=== PATIENT | male | born 1960 | race Caucasian/White ===

== ENCOUNTER 2017-12-05 16:30 | Emergency (ER) | payer MEDICARE, MEDICAID ==
[~2017-12-05] VITALS: Ht 165.1 cm; Wt 60.0 kg
[~2017-12-05 16:30] MED LIST: AMLO10TA4 PO; ARIP20TA2 PO; ATEN50TA PO; BENA40TA3 PO; CALC667C4 PO; CLON0.2T PO; DOCU-138 PO; GLIP10TA10 PO; HYDR100T26 PO; MINO10TA PO; NIFE90TA43 PO; OMEP20CA4 PO; PARO40TA75 PO; PHEN100C4 PO; PRAV80TA21 PO; REN800; VENL-179 PO
[2017-12-05 16:33] VITALS: BP 159/55
[2017-12-06] MEDS ORDERED: ACETAMINOPHEN 325MG TABLET PO ONE (01:45)
== END 2017-12-06 02:09 | disposition home or self-care (01) ==
LOC: ER 16:39
DX: S13.4XXA Sprain of ligaments of cervical spine, initial encounter (principal); S09.90XA Unspecified injury of head, initial encounter; F32.9 Major depressive disorder, single episode, unspecified; E11.9 Type 2 diabetes mellitus without complications; E78.00 Pure hypercholesterolemia, unspecified; I12.0 Hypertensive chronic kidney disease with stage 5 chronic kidney disease or end stage renal disease; Z79.84 Long term (current) use of oral hypoglycemic drugs; Z88.0 Allergy status to penicillin; Z88.1 Allergy status to other antibiotic agents; Z99.2 Dependence on renal dialysis; Z98.890 Other specified postprocedural states; V49.9XXA Car occupant (driver) (passenger) injured in unspecified traffic accident, initial encounter; Y93.89 Activity, other specified; Y99.8 Other external cause status; Y92.410 Unspecified street and highway as the place of occurrence of the external cause
CPT/HCPCS: 70450; 72100; 72125; 99284

== ENCOUNTER 2018-05-05 09:57 | Emergency (ER) | payer MEDICARE, MEDICAID ==
[~2018-05-05] VITALS: Ht 162.6 cm; Wt 64.0 kg
[2018-05-05] MEDS ORDERED: BACITRACIN ZINC OINT UDPKT TOP ONE (10:30)
[2018-05-05] MEDS ORDERED: HYDROCODONE/ACETAMINOPHEN 5/325MG TABLET PO ONE (10:30)
[2018-05-05 14:32] VITALS: BP 176/81
== END 2018-05-05 14:37 | disposition home or self-care (01) ==
LOC: ER 10:40
DX: S00.81XA Abrasion of other part of head, initial encounter (principal); M25.511 Pain in right shoulder; M54.2 Cervicalgia; Y93.89 Activity, other specified; Y92.092 Bedroom in other non-institutional residence as the place of occurrence of the external cause; W01.198A Fall on same level from slipping, tripping and stumbling with subsequent striking against other object, initial encounter
CPT/HCPCS: 70450; 71045; 72125; 99284

== ENCOUNTER 2018-05-22 12:41 | Inpatient (IN) | payer MEDICARE, MEDICAID ==
[~2018-05-22] VITALS: Ht 170.2 cm; Wt 70.3 kg
[2018-05-22] VITALS (28 sets, daily range): BP systolic 50–161; BP diastolic 24–110
[~2018-05-22 12:41] MED LIST changes: -BENA40TA3 PO; +BENA40TA9 PO
[2018-05-22] MEDS ORDERED: ONDANSETRON HCL 4MG/2ML VIAL IV STA (12:59)
[2018-05-22] MEDS ORDERED: SODIUM CHLORIDE 0.9% 1,000 ML IV ONE (12:59)
[2018-05-22] MEDS ORDERED: MORPHINE SULFATE 4 MG/ML CPJ (NOT FOR IM USE) IV STA (12:59)
[2018-05-22] MEDS ORDERED: LIDOCAINE HCL 1% 20ML VIAL (Pyxis) INJ ONE (14:03)
[2018-05-22] MEDS ORDERED: SODIUM BICARBONATE 4% (2.4MEQ) 5ML VIAL IV ONE (14:03)
[2018-05-22 14:25] LABS: HEMOGLOBIN. 11.1 g/dL (14.0-18.0); MEAN CORPUSCULAR HEMOGLOBIN 32.1 pg (28.0-32.0); MEAN CORPUSCULAR VOLUME 95.5 fL (80.0-94.0); MEAN PLATELET VOLUME 8.3 fl (7.4-10.4); PLATELET 328 x1000/uL (130-400); RED BLOOD CELL COUNT 3.45 mill/uL (4.7-6.1); RED CELL DISTRIBUTION WIDTH 14.4 % (11.6-14.6)
[2018-05-22 14:33] LABS: CHLORIDE 87 mEq/L (98-107)
[2018-05-22 14:38] LABS: INR 1.1; PROTHROMBIN TIME 11.2 sec (9.1-11.1)
[2018-05-22] MEDS ORDERED: NOREPINEPHRINE 4 MG in DEXT 5% WATER 246 ML IV ONE ×4 (14:45)
[2018-05-22 15:15] LABS: PLATELET ESTIMATE NORMAL
[2018-05-22] MEDS ORDERED: LEVOFLOXACIN 750MG PREMIX 150 ML IV ONE (16:15)
[2018-05-22] MEDS ORDERED: METRONIDAZOLE 500 MG PREMIX 100 ML IV ONE (16:15)
[2018-05-22] MEDS: BLOOD SUGAR DIAGNOSTIC STRIP TEST SCH (18:30)
[2018-05-22] MEDS ORDERED: DEXTROSE 50% WATER 50ML SYRINGE IV PRN (18:30)
[2018-05-22] MEDS ORDERED: SODIUM CHLORIDE 0.45% 1,000 ML IV SCH (18:45)
[2018-05-22] MEDS: PANTOPRAZOLE SODIUM 40 MG/VIAL IV SCH (18:48)
[2018-05-22] MEDS: INSULIN LISPRO 100 UNITS/ML SUBCUT SCH (18:49)
[2018-05-22] MEDS: MORPHINE SULFATE 4 MG/ML CPJ (NOT FOR IM USE) IV PRN (21:02)
[2018-05-22] MEDS: LEVETIRACETAM 500MG in SODIUM CHLORIDE 0.9% 100ML IV SCH (21:21)
[2018-05-22] MEDS: SODIUM CHLORIDE 0.45% 1,000 ML IV SCH (21:21)
[2018-05-22 21:43] LABS: BG CARBOXYHEMOGLOBIN 1.1 % (0.5-1.5); BG DEOXYHEMOGLOBIN 4.4 % (0.0-5.0); BG FRACTION INSPIRED OXYGEN 21; BG METHEMOGLOBIN 0.3 % (0.0-1.5); BG OXYGEN SATURATION 95.5 % (92.0-98.5); BG OXYHEMOGLOBIN 94.2 % (94.0-97.0); BG PCO2 31.3 mmHg (35.0-45.0); BG PH 7.484 (7.350-7.450); BG SAMPLE SITE RIGHT FEMORAL; BG TOTAL HEMOGLOBIN 9.8 g/dL (12.0-18.0); BG VENT MODE ROOM AIR
[2018-05-22] MEDS: NOREPINEPHRINE 4 MG in DEXT 5% WATER 246 ML IV PRN (21:47)
[2018-05-22] MEDS ORDERED: PHENYTOIN SODIUM 1000MG in SODIUM CHLORIDE 0.9% 100ML IV NR (22:00)
[2018-05-22] MEDS: MEROPENEM 500 MG in SODIUM CHLORIDE 0.9% 50 ML IV SCH (22:42)
[2018-05-22] MEDS ORDERED: VIT D2 (23:33)
[2018-05-22] MEDS ORDERED: PRAV40TA58 MT (23:33)
[2018-05-22] MEDS ORDERED: BENA20TA10 MT (23:33)
[2018-05-22] MEDS ORDERED: ARIP15TA7 MT (23:33)
[2018-05-23] VITALS (98 sets, daily range): BP systolic 44–166; BP diastolic 14–110
[2018-05-23] MEDS: BLOOD SUGAR DIAGNOSTIC STRIP TEST SCH ×5 (00:13→23:42)
[2018-05-23] MEDS: INSULIN LISPRO 100 UNITS/ML SUBCUT SCH ×4 (00:38→16:36)
[2018-05-23 01:05] LABS: HEMATOCRIT 29.7 % (42.0-52.0)
[2018-05-23] MEDS ORDERED: ALBUMIN HUMAN 25GM/500ML (5%) IV SCH (02:00)
[2018-05-23] MEDS: MORPHINE SULFATE 4 MG/ML CPJ (NOT FOR IM USE) IV PRN ×2 (03:39→17:34)
[2018-05-23] MEDS: SODIUM CHLORIDE 0.45% 1,000 ML IV SCH ×2 (05:36→16:38)
[2018-05-23 05:44] LABS: MEAN CORPUSCULAR HEMOGLOBIN 32.6 pg (28.0-32.0); MEAN CORPUSCULAR VOLUME 94.6 fL (80.0-94.0); MEAN PLATELET VOLUME 7.8 fl (7.4-10.4); PLATELET 241 x1000/uL (130-400); RED BLOOD CELL COUNT 2.75 mill/uL (4.7-6.1); RED CELL DISTRIBUTION WIDTH 14.4 % (11.6-14.6)
[2018-05-23 06:02] LABS: CHLORIDE 90 mEq/L (98-107)
[2018-05-23 06:17] LABS: PHOSPHORUS 5.3 mg/dL (2.5-4.9)
[2018-05-23 07:21] LABS: BG BASE EXCESS -1.1 mmol/L (-2.0-2.0); BG CARBOXYHEMOGLOBIN 1.1 % (0.5-1.5); BG DEOXYHEMOGLOBIN 5.2 % (0.0-5.0); BG HCO3 ACT 21.8 mmol/L (22.0-26.0); BG METHEMOGLOBIN 0.2 % (0.0-1.5); BG OXYGEN SATURATION 94.7 % (92.0-98.5); BG OXYHEMOGLOBIN 93.5 % (94.0-97.0); BG PO2 79.5 mmHg (75.0-100.0); BG SAMPLE SITE RIGHT BRACHIAL; BG TOTAL HEMOGLOBIN 9.7 g/dL (12.0-18.0); BG VENT MODE ROOM AIR
[2018-05-23] MEDS: SODIUM CHLORIDE 0.9% IV SCH ×2 (08:00→20:35)
[2018-05-23] MEDS: PHENYTOIN SODIUM IV SCH ×2 (08:00→20:35)
[2018-05-23] MEDS: NOREPINEPHRINE 4 MG in DEXT 5% WATER 246 ML IV PRN ×4 (09:32→17:22)
[2018-05-23] MEDS: PANTOPRAZOLE SODIUM 40 MG/VIAL IV SCH (09:45)
[2018-05-23] MEDS ORDERED: METRONIDAZOLE 500 MG PREMIX 100 ML IV ONE (09:54)
[2018-05-23] MEDS ORDERED: LEVOFLOXACIN 500MG PREMIX 100 ML IV ONE (09:55)
[2018-05-23] MEDS ORDERED: BUPIVACAINE HCL 0.5% (5MG/ML) 50ML ONE (09:55)
[2018-05-23] MEDS ORDERED: FENTANYL CITRATE/PF 50MCG/ML 5ML VIAL ONE (10:23)
[2018-05-23] MEDS ORDERED: ROCURONIUM BROMIDE 10MG/ML VIAL 5ML IV ONE ×2 (10:35→11:10)
[2018-05-23] MEDS ORDERED: BUPIVACAINE HCL 0.5% 290 ML in ON-Q PM025 DRUG DELIV DEVICE 1 EA IR SCH (11:45)
[2018-05-23 13:20] LABS: PLATELET ESTIMATE NORMAL
[2018-05-23] MEDS: LEVETIRACETAM 500MG in SODIUM CHLORIDE 0.9% 100ML IV SCH ×2 (13:40→22:16)
[2018-05-23 13:46] LABS: BG BASE EXCESS -6.6 mmol/L (-2.0-2.0); BG CARBOXYHEMOGLOBIN 0.6 % (0.5-1.5); BG DEOXYHEMOGLOBIN 0.7 % (0.0-5.0); BG FRACTION INSPIRED OXYGEN 70; BG HCO3 ACT 17.4 mmol/L (22.0-26.0); BG METHEMOGLOBIN 0.3 % (0.0-1.5); BG OXYGEN SATURATION 99.3 % (92.0-98.5); BG OXYHEMOGLOBIN 98.4 % (94.0-97.0); BG PCO2 29.4 mmHg (35.0-45.0); BG PO2 416.3 mmHg (75.0-100.0); BG SAMPLE SITE A-LINE; BG TIDAL VOLUME(mL) 450 mL; BG TOTAL HEMOGLOBIN 9.1 g/dL (12.0-18.0); BG VENT MODE VENT - A/C; BG VENT RATE 14 set
[2018-05-23] MEDS ORDERED: SODIUM BICARBONATE 8.4% 1 MEQ/ML 50ML SYR IV NR ×2 (14:08)
[2018-05-23] MEDS ORDERED: SODIUM BICARBONATE 8.4% 1 MEQ/ML 50ML SYR IV ONE (14:16)
[2018-05-23] MEDS ORDERED: ALBUMIN HUMAN 25GM/500ML (5%) IV NR (14:30)
[2018-05-23 15:30] LABS: HEMATOCRIT. 26.5 % (42.0-52.0); MEAN CORPUSCULAR HEMOGLOBIN 32.7 pg (28.0-32.0); MEAN CORPUSCULAR VOLUME 95.8 fL (80.0-94.0); MEAN PLATELET VOLUME 8.7 fl (7.4-10.4); PLATELET 300 x1000/uL (130-400); RED BLOOD CELL COUNT 2.77 mill/uL (4.7-6.1); RED CELL DISTRIBUTION WIDTH 14.9 % (11.6-14.6)
[2018-05-23 16:14] LABS: PLATELET ESTIMATE NORMAL
[2018-05-23 20:46] LABS: BG BASE EXCESS -0.3 mmol/L (-2.0-2.0); BG CARBOXYHEMOGLOBIN 0.7 % (0.5-1.5); BG DEOXYHEMOGLOBIN 1.3 % (0.0-5.0); BG FRACTION INSPIRED OXYGEN 40; BG HCO3 ACT 21.4 mmol/L (22.0-26.0); BG METHEMOGLOBIN 0.3 % (0.0-1.5); BG OXYGEN SATURATION 98.7 % (92.0-98.5); BG OXYHEMOGLOBIN 97.7 % (94.0-97.0); BG PCO2 25.9 mmHg (35.0-45.0); BG PEEP (cmH2O) 0 cmH2O; BG PH 7.534 (7.350-7.450); BG PO2 210.5 mmHg (75.0-100.0); BG SAMPLE SITE A-LINE; BG TIDAL VOLUME(mL) 450 mL; BG VENT MODE VENT - A/C; BG VENT RATE 14 set
[2018-05-23 20:48] LABS: MEAN CORPUSCULAR HEMOGLOBIN 33.1 pg (28.0-32.0); MEAN CORPUSCULAR VOLUME 94.5 fL (80.0-94.0); MEAN PLATELET VOLUME 8.2 fl (7.4-10.4); PLATELET 199 x1000/uL (130-400); RED BLOOD CELL COUNT 2.01 mill/uL (4.7-6.1); RED CELL DISTRIBUTION WIDTH 14.7 % (11.6-14.6)
[2018-05-23 20:55] LABS: HEMOGLOBIN. 6.7 g/dL (14.0-18.0)
[2018-05-23 21:33] LABS: PLATELET ESTIMATE NORMAL
[2018-05-23 22:53] LABS: BG BASE EXCESS -3.5 mmol/L (-2.0-2.0); BG CARBOXYHEMOGLOBIN 1.8 % (0.5-1.5); BG DEOXYHEMOGLOBIN 1.7 % (0.0-5.0); BG FRACTION INSPIRED OXYGEN 30; BG HCO3 ACT 19.6 mmol/L (22.0-26.0); BG METHEMOGLOBIN 0.3 % (0.0-1.5); BG OXYGEN SATURATION 98.3 % (92.0-98.5); BG OXYHEMOGLOBIN 96.2 % (94.0-97.0); BG PCO2 27.6 mmHg (35.0-45.0); BG PO2 129.5 mmHg (75.0-100.0); BG SAMPLE SITE A-LINE; BG TIDAL VOLUME(mL) 450 mL; BG TOTAL HEMOGLOBIN 7.2 g/dL (12.0-18.0); BG VENT MODE VENT - A/C; BG VENT RATE 14 set
[2018-05-24] VITALS (112 sets, daily range): BP systolic 58–189; BP diastolic 15–106
[2018-05-24] MEDS: MORPHINE SULFATE 4 MG/ML CPJ (NOT FOR IM USE) IV PRN ×4 (00:02→07:53)
[2018-05-24] MEDS: MEROPENEM 500 MG in SODIUM CHLORIDE 0.9% 50 ML IV SCH ×2 (00:02→23:34)
[2018-05-24] MEDS: INSULIN LISPRO 100 UNITS/ML SUBCUT SCH ×5 (00:11→23:35)
[2018-05-24] MEDS: NOREPINEPHRINE 4 MG in DEXT 5% WATER 246 ML IV PRN ×2 (00:17→05:09)
[2018-05-24] MEDS: SODIUM CHLORIDE 0.45% 1,000 ML IV SCH ×3 (02:10→21:42)
[2018-05-24 04:07] LABS: HEMATOCRIT. 23.6 % (42.0-52.0); HEMOGLOBIN. 8.1 g/dL (14.0-18.0); MEAN CORPUSCULAR VOLUME 92.8 fL (80.0-94.0); MEAN PLATELET VOLUME 8.4 fl (7.4-10.4); PLATELET 211 x1000/uL (130-400); RED BLOOD CELL COUNT 2.54 mill/uL (4.7-6.1)
[2018-05-24 04:08] LABS: PHOSPHORUS 5.9 mg/dL (2.5-4.9)
[2018-05-24 05:00] LABS: PLATELET ESTIMATE NORMAL
[2018-05-24] MEDS ORDERED: NOREPINEPHRINE 16 MG in DEXT 5% WATER 234 ML IV PRN (06:15)
[2018-05-24] MEDS: BLOOD SUGAR DIAGNOSTIC STRIP TEST SCH ×4 (06:23→23:24)
[2018-05-24] MEDS ORDERED: LORAZEPAM 2MG/ML CPJ IV PRN (08:45)
[2018-05-24 08:49] LABS: BG BASE EXCESS -2.1 mmol/L (-2.0-2.0); BG CARBOXYHEMOGLOBIN 0.6 % (0.5-1.5); BG DEOXYHEMOGLOBIN 1.6 % (0.0-5.0); BG FRACTION INSPIRED OXYGEN 30; BG HCO3 ACT 20.5 mmol/L (22.0-26.0); BG METHEMOGLOBIN 0.2 % (0.0-1.5); BG OXYGEN SATURATION 98.4 % (92.0-98.5); BG OXYHEMOGLOBIN 97.6 % (94.0-97.0); BG PCO2 26.3 mmHg (35.0-45.0); BG PH 7.509 (7.350-7.450); BG PO2 144.8 mmHg (75.0-100.0); BG SAMPLE SITE A-LINE; BG TIDAL VOLUME(mL) 450 mL; BG TOTAL HEMOGLOBIN 7.6 g/dL (12.0-18.0); BG VENT MODE VENT - A/C; BG VENT RATE 14 set
[2018-05-24] MEDS: IPRATROPIUM/ALBUTEROL 0.5-3(2.5)MG/3ML NEB HHN SCH ×5 (08:51→23:55)
[2018-05-24] MEDS: LEVETIRACETAM 500MG in SODIUM CHLORIDE 0.9% 100ML IV SCH ×2 (12:11→21:42)
[2018-05-24] MEDS: SODIUM CHLORIDE 0.9% IV SCH ×2 (12:11→20:48)
[2018-05-24] MEDS: PHENYTOIN SODIUM IV SCH ×2 (12:11→20:48)
[2018-05-24] MEDS: PANTOPRAZOLE SODIUM 40 MG/VIAL IV SCH (12:11)
[2018-05-24 14:22] LABS: BG BASE EXCESS -0.1 mmol/L (-2.0-2.0); BG CARBOXYHEMOGLOBIN 0.7 % (0.5-1.5); BG DEOXYHEMOGLOBIN 2.3 % (0.0-5.0); BG FRACTION INSPIRED OXYGEN 30; BG HCO3 ACT 24.1 mmol/L (22.0-26.0); BG METHEMOGLOBIN 0.3 % (0.0-1.5); BG OXYGEN SATURATION 97.7 % (92.0-98.5); BG OXYHEMOGLOBIN 96.7 % (94.0-97.0); BG PCO2 37.2 mmHg (35.0-45.0); BG PO2 123.5 mmHg (75.0-100.0); BG PRESSURE SUPPORT 0; BG SAMPLE SITE A-LINE; BG TOTAL HEMOGLOBIN 8.7 g/dL (12.0-18.0); BG VENT MODE VENT - CPAP
[2018-05-24 17:19] LABS: BG CARBOXYHEMOGLOBIN 0.5 % (0.5-1.5); BG DEOXYHEMOGLOBIN 1.5 % (0.0-5.0); BG FRACTION INSPIRED OXYGEN 30; BG METHEMOGLOBIN 0.3 % (0.0-1.5); BG OXYGEN SATURATION 98.5 % (92.0-98.5); BG OXYHEMOGLOBIN 97.7 % (94.0-97.0); BG PCO2 36.1 mmHg (35.0-45.0); BG PH 7.441 (7.350-7.450); BG PO2 148.5 mmHg (75.0-100.0); BG SAMPLE SITE A-LINE; BG TOTAL HEMOGLOBIN 8.5 g/dL (12.0-18.0); BG VENT MODE MASK - AEROSOL
[2018-05-25] VITALS (111 sets, daily range): BP systolic 37–161; BP diastolic 13–139
[2018-05-25] MEDS: IPRATROPIUM/ALBUTEROL 0.5-3(2.5)MG/3ML NEB HHN SCH ×5 (04:13→20:25)
[2018-05-25 04:39] LABS: HEMATOCRIT. 21.4 % (42.0-52.0); HEMOGLOBIN. 7.4 g/dL (14.0-18.0); MEAN CORPUSCULAR VOLUME 92.3 fL (80.0-94.0); MEAN PLATELET VOLUME 7.9 fl (7.4-10.4); PLATELET 191 x1000/uL (130-400); RED BLOOD CELL COUNT 2.32 mill/uL (4.7-6.1); RED CELL DISTRIBUTION WIDTH 15.6 % (11.6-14.6)
[2018-05-25 05:24] LABS: PHOSPHORUS 5.5 mg/dL (2.5-4.9)
[2018-05-25] MEDS: BLOOD SUGAR DIAGNOSTIC STRIP TEST SCH ×3 (06:32→18:00)
[2018-05-25] MEDS: INSULIN LISPRO 100 UNITS/ML SUBCUT SCH ×3 (06:33→18:23)
[2018-05-25] MEDS: SODIUM CHLORIDE 0.9% IV SCH ×2 (08:16→20:49)
[2018-05-25] MEDS: PHENYTOIN SODIUM IV SCH ×2 (08:16→20:49)
[2018-05-25] MEDS: SODIUM CHLORIDE 0.45% 1,000 ML IV SCH (08:31)
[2018-05-25 08:48] LABS: BG BASE EXCESS -0.3 mmol/L (-2.0-2.0); BG CARBOXYHEMOGLOBIN 1.1 % (0.5-1.5); BG DEOXYHEMOGLOBIN 1.5 % (0.0-5.0); BG FRACTION INSPIRED OXYGEN 22; BG HCO3 ACT 24.5 mmol/L (22.0-26.0); BG METHEMOGLOBIN 0.2 % (0.0-1.5); BG OXYGEN SATURATION 98.5 % (92.0-98.5); BG OXYHEMOGLOBIN 97.2 % (94.0-97.0); BG PCO2 41.2 mmHg (35.0-45.0); BG PH 7.393 (7.350-7.450); BG SAMPLE SITE A-LINE; BG TOTAL HEMOGLOBIN 7.7 g/dL (12.0-18.0); BG VENT MODE NASAL CANNULA
[2018-05-25 09:59] LABS: PLATELET ESTIMATE NORMAL
[2018-05-25] MEDS: PANTOPRAZOLE SODIUM 40 MG/VIAL IV SCH (10:01)
[2018-05-25] MEDS: LEVETIRACETAM 500MG in SODIUM CHLORIDE 0.9% 100ML IV SCH ×2 (10:01→22:30)
[2018-05-25] MEDS: CEFTAZIDIME PENTAHYDRATE 1 G in DEXTROSE 5% WATER 50 ML IV SCH (16:35)
[2018-05-25] MEDS: METRONIDAZOLE 500 MG PREMIX 100 ML IV SCH (16:35)
[2018-05-25 20:07] LABS: HEMATOCRIT 27.5 % (42.0-52.0); HEMOGLOBIN 9.3 g/dL (14.0-18.0)
[2018-05-26] VITALS (87 sets, daily range): BP systolic 39–167; BP diastolic 15–98
[2018-05-26] MEDS: IPRATROPIUM/ALBUTEROL 0.5-3(2.5)MG/3ML NEB HHN SCH ×6 (00:09→20:07)
[2018-05-26] MEDS: INSULIN LISPRO 100 UNITS/ML SUBCUT SCH ×4 (00:11→18:53)
[2018-05-26] MEDS: BLOOD SUGAR DIAGNOSTIC STRIP TEST SCH ×4 (00:11→18:48)
[2018-05-26] MEDS: METRONIDAZOLE 500 MG PREMIX 100 ML IV SCH ×3 (00:12→21:15)
[2018-05-26 05:29] LABS: BASOPHILS % 0.7 % (0.0-2.0); EOSINOPHILS % 0.5 % (0.0-5.0); HEMATOCRIT. 26.5 % (42.0-52.0); HEMOGLOBIN. 8.9 g/dL (14.0-18.0); LYMPHOCYTES % 8.4 % (20.0-50.0); MEAN CORPUSCULAR HEMOGLOBIN 30.3 pg (28.0-32.0); MEAN CORPUSCULAR VOLUME 90.1 fL (80.0-94.0); MEAN PLATELET VOLUME 7.7 fl (7.4-10.4); MONOCYTES % 14.3 % (2.0-8.0); NEUTROPHILS % 76.1 % (40.0-76.0); PLATELET 178 x1000/uL (130-400); RED BLOOD CELL COUNT 2.94 mill/uL (4.7-6.1); RED CELL DISTRIBUTION WIDTH 17.3 % (11.6-14.6)
[2018-05-26] MEDS: SODIUM CHLORIDE 0.45% 1,000 ML IV SCH (06:13)
[2018-05-26] MEDS: PANTOPRAZOLE SODIUM 40 MG/VIAL IV SCH (11:18)
[2018-05-26] MEDS: LEVETIRACETAM 500MG in SODIUM CHLORIDE 0.9% 100ML IV SCH ×2 (11:18→20:44)
[2018-05-26] MEDS: PHENYTOIN SODIUM IV SCH ×2 (11:19→20:44)
[2018-05-26] MEDS: SODIUM CHLORIDE 0.9% IV SCH ×2 (11:19→20:44)
[2018-05-26] MEDS: CEFTAZIDIME PENTAHYDRATE 1 G in DEXTROSE 5% WATER 50 ML IV SCH (16:26)
[2018-05-27] VITALS (20 sets, daily range): BP systolic 75–152; BP diastolic 28–81
[2018-05-27] MEDS: IPRATROPIUM/ALBUTEROL 0.5-3(2.5)MG/3ML NEB HHN SCH ×6 (00:35→20:37)
[2018-05-27] MEDS: BLOOD SUGAR DIAGNOSTIC STRIP TEST SCH ×4 (00:56→17:09)
[2018-05-27] MEDS: SODIUM CHLORIDE 0.45% 1,000 ML IV SCH ×2 (01:09→17:15)
[2018-05-27] MEDS: INSULIN LISPRO 100 UNITS/ML SUBCUT SCH ×4 (05:34→17:15)
[2018-05-27 05:48] LABS: BASOPHILS % 0.7 % (0.0-2.0); EOSINOPHILS % 0.9 % (0.0-5.0); HEMOGLOBIN. 8.1 g/dL (14.0-18.0); MEAN CORPUSCULAR HEMOGLOBIN 30.4 pg (28.0-32.0); MEAN CORPUSCULAR VOLUME 93.3 fL (80.0-94.0); MEAN PLATELET VOLUME 7.8 fl (7.4-10.4); MONOCYTES % 13.3 % (2.0-8.0); NEUTROPHILS % 77.1 % (40.0-76.0); PLATELET 138 x1000/uL (130-400); RED BLOOD CELL COUNT 2.68 mill/uL (4.7-6.1)
[2018-05-27 06:02] LABS: PHOSPHORUS 4.7 mg/dL (2.5-4.9)
[2018-05-27] MEDS: METRONIDAZOLE 500 MG PREMIX 100 ML IV SCH ×2 (08:13→23:03)
[2018-05-27] MEDS: PANTOPRAZOLE SODIUM 40 MG/VIAL IV SCH (08:13)
[2018-05-27] MEDS: PHENYTOIN SODIUM IV SCH ×2 (08:49→20:43)
[2018-05-27] MEDS: SODIUM CHLORIDE 0.9% IV SCH ×2 (08:49→20:43)
[2018-05-27] MEDS: LEVETIRACETAM 500MG in SODIUM CHLORIDE 0.9% 100ML IV SCH ×2 (11:00→21:59)
[2018-05-27] MEDS: MORPHINE SULFATE 4 MG/ML CPJ (NOT FOR IM USE) IV PRN (15:11)
[2018-05-27] MEDS: CEFTAZIDIME PENTAHYDRATE 1 G in DEXTROSE 5% WATER 50 ML IV SCH (15:29)
[2018-05-28] VITALS (12 sets, daily range): BP systolic 97–168; BP diastolic 27–118
[2018-05-28] MEDS: IPRATROPIUM/ALBUTEROL 0.5-3(2.5)MG/3ML NEB HHN SCH ×6 (00:33→20:50)
[2018-05-28] MEDS: BLOOD SUGAR DIAGNOSTIC STRIP TEST SCH ×5 (00:41→23:23)
[2018-05-28] MEDS: EPOETIN ALFA 4000UNITS/ML VIAL SUBCUT SCH (01:02)
[2018-05-28] MEDS: INSULIN LISPRO 100 UNITS/ML SUBCUT SCH ×5 (06:00→23:26)
[2018-05-28 07:42] LABS: HEMATOCRIT. 24.1 % (42.0-52.0); HEMOGLOBIN. 8.2 g/dL (14.0-18.0); MEAN CORPUSCULAR HEMOGLOBIN 30.9 pg (28.0-32.0); MEAN CORPUSCULAR VOLUME 91.2 fL (80.0-94.0); MEAN PLATELET VOLUME 7.6 fl (7.4-10.4); PLATELET 134 x1000/uL (130-400); RED BLOOD CELL COUNT 2.64 mill/uL (4.7-6.1); RED CELL DISTRIBUTION WIDTH 17.1 % (11.6-14.6)
[2018-05-28] MEDS: PHENYTOIN SODIUM IV SCH ×2 (08:53→20:58)
[2018-05-28] MEDS: SODIUM CHLORIDE 0.9% IV SCH ×2 (08:53→20:58)
[2018-05-28] MEDS: PANTOPRAZOLE SODIUM 40 MG/VIAL IV SCH (08:54)
[2018-05-28] MEDS: METRONIDAZOLE 500 MG PREMIX 100 ML IV SCH ×2 (08:54→20:58)
[2018-05-28] MEDS: LEVETIRACETAM 500MG in SODIUM CHLORIDE 0.9% 100ML IV SCH ×2 (08:54→20:59)
[2018-05-28] MEDS: SODIUM CHLORIDE 0.45% 1,000 ML IV SCH (11:40)
[2018-05-28 16:22] LABS: PLATELET ESTIMATE NORMAL
[2018-05-28] MEDS: CEFTAZIDIME PENTAHYDRATE 1 G in DEXTROSE 5% WATER 50 ML IV SCH (17:59)
[2018-05-28] MEDS ORDERED: TOTAL PARENTERAL NUTRITION 1,300 ML IV SCH (21:00)
[2018-05-29] VITALS (12 sets, daily range): BP systolic 86–169; BP diastolic 15–97
[2018-05-29] MEDS: IPRATROPIUM/ALBUTEROL 0.5-3(2.5)MG/3ML NEB HHN SCH ×6 (00:23→20:13)
[2018-05-29] MEDS: SODIUM CHLORIDE 0.45% 1,000 ML IV SCH (06:09)
[2018-05-29] MEDS: BLOOD SUGAR DIAGNOSTIC STRIP TEST SCH ×3 (06:09→18:31)
[2018-05-29] MEDS: INSULIN LISPRO 100 UNITS/ML SUBCUT SCH ×3 (06:12→18:37)
[2018-05-29 07:36] LABS: MEAN CORPUSCULAR HEMOGLOBIN 30.6 pg (28.0-32.0); MEAN CORPUSCULAR VOLUME 90.9 fL (80.0-94.0); MEAN PLATELET VOLUME 7.7 fl (7.4-10.4); PLATELET 129 x1000/uL (130-400)
[2018-05-29 07:38] LABS: PHOSPHORUS 1.9 mg/dL (2.5-4.9)
[2018-05-29] MEDS: PHENYTOIN SODIUM IV SCH ×2 (07:58→20:42)
[2018-05-29] MEDS: SODIUM CHLORIDE 0.9% IV SCH ×2 (07:58→20:42)
[2018-05-29 09:16] LABS: HEMATOCRIT. 20.9 % (42.0-52.0)
[2018-05-29] MEDS: PANTOPRAZOLE SODIUM 40 MG/VIAL IV SCH (09:16)
[2018-05-29] MEDS: LEVETIRACETAM 500MG in SODIUM CHLORIDE 0.9% 100ML IV SCH ×2 (09:16→20:42)
[2018-05-29 10:21] LABS: PLATELET ESTIMATE SLIGHTLY DECREASED
[2018-05-29] MEDS: METRONIDAZOLE 500 MG PREMIX 100 ML IV SCH (10:48)
[2018-05-29] MEDS ORDERED: TOTAL PARENTERAL NUTRITION 1,300 ML IV SCH (21:00)
[2018-05-29] MEDS ORDERED: FAT EMULSIONS 500 ML IV SCH (22:00)
[2018-05-29] MEDS: EPOETIN ALFA 4000UNITS/ML VIAL SUBCUT SCH (22:22)
[2018-05-30] VITALS (14 sets, daily range): BP systolic 95–156; BP diastolic 35–69
[2018-05-30] MEDS: BLOOD SUGAR DIAGNOSTIC STRIP TEST SCH ×4 (00:25→17:55)
[2018-05-30] MEDS: INSULIN LISPRO 100 UNITS/ML SUBCUT SCH ×4 (00:28→18:29)
[2018-05-30] MEDS: IPRATROPIUM/ALBUTEROL 0.5-3(2.5)MG/3ML NEB HHN SCH ×4 (00:33→20:10)
[2018-05-30 07:25] LABS: BASOPHILS % 0.8 % (0.0-2.0); HEMOGLOBIN. 7.8 g/dL (14.0-18.0); LYMPHOCYTES % 9.8 % (20.0-50.0); MEAN CORPUSCULAR HEMOGLOBIN 32.5 pg (28.0-32.0); MEAN CORPUSCULAR VOLUME 91.5 fL (80.0-94.0); MONOCYTES % 7.8 % (2.0-8.0); NEUTROPHILS % 79.6 % (40.0-76.0); PLATELET 169 x1000/uL (130-400); RED CELL DISTRIBUTION WIDTH 17.3 % (11.6-14.6)
[2018-05-30 07:30] LABS: PHOSPHORUS 1.6 mg/dL (2.5-4.9)
[2018-05-30] MEDS ORDERED: ACETAMINOPHEN 325MG TABLET PO PRN (09:15)
[2018-05-30] MEDS ORDERED: PHENYTOIN SODIUM 100MG/2ML VIAL IV SCH (09:15)
[2018-05-30] MEDS: METRONIDAZOLE 500 MG PREMIX 100 ML IV SCH ×2 (11:51→20:44)
[2018-05-30] MEDS: PANTOPRAZOLE SODIUM 40 MG/VIAL IV SCH (12:09)
[2018-05-30] MEDS ORDERED: SODIUM PHOS,M-BASIC-D-BASIC 15 MM in DEXT 5% WATER 245 ML IV NR (12:30)
[2018-05-30] MEDS: LEVETIRACETAM 500MG in SODIUM CHLORIDE 0.9% 100ML IV SCH (12:41)
[2018-06-02] MEDS ORDERED: FAT EMULSIONS 500 ML IV SCH (22:00)
== END 2018-05-30 22:14 | DRG 329 ==
LOC: ER 13:06 → CVICU 16:31 → EDBEDREQSVC 16:36 → EDBEDREQ 16:36 → ENRESERV 16:39 → 5EST 05-27 16:30
PROVIDERS: ADMIT Internal Medicine; ATTEND Internal Medicine
PROC: 02HV33Z Insertion of Infusion Device into Superior Vena Cava, Percutaneous Approach (ICD-10-PCS; 2018-05-22)
PROC: B54MZZA Ultrasonography of Right Upper Extremity Veins, Guidance (ICD-10-PCS; 2018-05-22)
PROC: 5A1D70Z Performance of Urinary Filtration, Intermittent, Less than 6 Hours Per Day (ICD-10-PCS; 2018-05-22)
PROC: B548ZZA Ultrasonography of Superior Vena Cava, Guidance (ICD-10-PCS; 2018-05-22)
PROC: 0BH17EZ Insertion of Endotracheal Airway into Trachea, Via Natural or Artificial Opening (ICD-10-PCS; 2018-05-23)
PROC: 5A1945Z Respiratory Ventilation, 24-96 Consecutive Hours (ICD-10-PCS; 2018-05-23)
PROC: 5A1D70Z Performance of Urinary Filtration, Intermittent, Less than 6 Hours Per Day (ICD-10-PCS; 2018-05-23)
PROC: 30233N1 Transfusion of Nonautologous Red Blood Cells into Peripheral Vein, Percutaneous Approach (ICD-10-PCS; 2018-05-23)
PROC: 0DT80ZZ Resection of Small Intestine, Open Approach (ICD-10-PCS; principal; 2018-05-23 09:30)
PROC: 5A1D70Z Performance of Urinary Filtration, Intermittent, Less than 6 Hours Per Day (ICD-10-PCS; 2018-05-25)
PROC: 4A00X4Z Measurement of Central Nervous Electrical Activity, External Approach (ICD-10-PCS; 2018-05-26)
PROC: 5A1D70Z Performance of Urinary Filtration, Intermittent, Less than 6 Hours Per Day (ICD-10-PCS; 2018-05-28)
PROC: 5A1D70Z Performance of Urinary Filtration, Intermittent, Less than 6 Hours Per Day (ICD-10-PCS; 2018-05-29)
DX: K55.029 Acute infarction of small intestine, extent unspecified (principal); N18.6 End stage renal disease; I12.0 Hypertensive chronic kidney disease with stage 5 chronic kidney disease or end stage renal disease; E87.1 Hypo-osmolality and hyponatremia; E46 Unspecified protein-calorie malnutrition; R57.9 Shock, unspecified; D61.818 Other pancytopenia; K56.699 Other intestinal obstruction unspecified as to partial versus complete obstruction; K66.0 Peritoneal adhesions (postprocedural) (postinfection); E10.22 Type 1 diabetes mellitus with diabetic chronic kidney disease; E10.319 Type 1 diabetes mellitus with unspecified diabetic retinopathy without macular edema; E10.51 Type 1 diabetes mellitus with diabetic peripheral angiopathy without gangrene; E83.39 Other disorders of phosphorus metabolism; R26.81 Unsteadiness on feet; G40.909 Epilepsy, unspecified, not intractable, without status epilepticus; H54.7 Unspecified visual loss; K74.60 Unspecified cirrhosis of liver; R62.7 Adult failure to thrive; Z78.1 Physical restraint status; Z79.4 Long term (current) use of insulin; Z86.73 Personal history of transient ischemic attack (TIA), and cerebral infarction without residual deficits; Z99.2 Dependence on renal dialysis; Z88.0 Allergy status to penicillin; Z88.1 Allergy status to other antibiotic agents; Z68.24 Body mass index [BMI] 24.0-24.9, adult
CPT/HCPCS: 36415; 36569; 36600; 70450; 71045; 71250; 74176; 76937; 80048; 80053; 80185; 82270; 82375; 82805; 82962; 83605; 83690; 83735; 83880; 84100; 84478; 84484; 85014; 85018; 85025; 85610; 86850; 86900; 86920; 87040; 87070; 88307; 93005; 93971; 94002; 94003; 94640; 96361; 96365; 96375; 97110; 97162; 97530; 99285; C1725; C9113; J0713; J0885; J1165; J1815; J1953; J1956; J2060; J2185; J2270; J2405; J3010; J3490; J7030; J7050; J7060; J7620; P9016; P9041

== ENCOUNTER 2018-05-30 22:05 | Inpatient (IN) | payer MEDICARE, MEDICAID ==
[~2018-05-30] VITALS: Ht 170.2 cm; Wt 70.3 kg
[~2018-05-30 22:05] MED LIST changes: -AMLO10TA4 PO; +ARIP15TA7 MT; -ARIP20TA2 PO; +BENA20TA10 MT; -BENA40TA9 PO; -CALC667C4 PO; -DOCU-138 PO; -MINO10TA PO; -NIFE90TA43 PO; +PRAV40TA58 MT; -PRAV80TA21 PO; -REN800; +VIT D2
[2018-05-30 22:10] VITALS: BP 100/30
[2018-05-30 22:30] VITALS: BP 100/30
[2018-05-30] MEDS ORDERED: IPRATROPIUM/ALBUTEROL 0.5-3(2.5)MG/3ML NEB HHN PRN (23:15)
[2018-05-30] MEDS ORDERED: DEXTROSE 50% WATER 50ML SYRINGE IV PRN (23:30)
[2018-05-30] MEDS: LEVETIRACETAM 500MG TABLET PO SCH (23:38)
[2018-05-31] VITALS (7 sets, daily range): BP systolic 113–147; BP diastolic 33–48
[2018-05-31] MEDS: IPRATROPIUM/ALBUTEROL 0.5-3(2.5)MG/3ML NEB HHN SCH ×5 (04:54→20:39)
[2018-05-31] MEDS: BLOOD SUGAR DIAGNOSTIC STRIP TEST SCH ×4 (05:44→21:00)
[2018-05-31] MEDS: INSULIN LISPRO 100 UNITS/ML SUBCUT SCH ×3 (06:53→16:25)
[2018-05-31 07:04] LABS: PHOSPHORUS 3.2 mg/dL (2.5-4.9)
[2018-05-31 07:22] LABS: BASOPHILS % 0.9 % (0.0-2.0); EOSINOPHILS % 1.6 % (0.0-5.0); LYMPHOCYTES % 9.9 % (20.0-50.0); MEAN CORPUSCULAR HEMOGLOBIN 30.2 pg (28.0-32.0); MEAN CORPUSCULAR VOLUME 91.3 fL (80.0-94.0); MEAN PLATELET VOLUME 8.5 fl (7.4-10.4); MONOCYTES % 11.6 % (2.0-8.0); PLATELET 163 x1000/uL (130-400); RED BLOOD CELL COUNT 2.28 mill/uL (4.7-6.1); RED CELL DISTRIBUTION WIDTH 16.8 % (11.6-14.6)
[2018-05-31 07:34] LABS: HEMOGLOBIN. 6.9 g/dL (14.0-18.0)
[2018-05-31 07:35] LABS: HEMATOCRIT. 20.8 % (42.0-52.0)
[2018-05-31] MEDS: METRONIDAZOLE 500 MG PREMIX 100 ML IV SCH ×2 (08:27→23:29)
[2018-05-31] MEDS: LEVETIRACETAM 500MG TABLET PO SCH ×2 (08:27→23:30)
[2018-05-31] MEDS ORDERED: PANTOPRAZOLE SODIUM 40 MG/VIAL IV SCH (09:00)
[2018-05-31] MEDS ORDERED: METRONIDAZOLE 500 MG PREMIX 100 ML IV SCH (09:00)
[2018-05-31] MEDS: ACETAMINOPHEN 325MG TABLET PO PRN (10:26)
[2018-05-31] MEDS ORDERED: EPOETIN ALFA 10000UNITS/ML VIAL SUBCUT SCH (21:00)
[2018-05-31] MEDS: EPOETIN ALFA 4000UNITS/ML VIAL SUBCUT SCH (23:31)
[2018-06-01] MEDS: IPRATROPIUM/ALBUTEROL 0.5-3(2.5)MG/3ML NEB HHN SCH ×6 (00:11→21:46)
[2018-06-01] MEDS: INSULIN LISPRO 100 UNITS/ML SUBCUT SCH ×5 (00:18→21:25)
[2018-06-01] MEDS: PANTOPRAZOLE 40MG DR TABLET PO SCH (06:06)
[2018-06-01] MEDS: BLOOD SUGAR DIAGNOSTIC STRIP TEST SCH ×4 (06:10→21:05)
[2018-06-01 06:47] LABS: BASOPHILS % 0.6 % (0.0-2.0); EOSINOPHILS % 1.7 % (0.0-5.0); HEMATOCRIT. 23.6 % (42.0-52.0); LYMPHOCYTES % 8.6 % (20.0-50.0); MEAN CORPUSCULAR HEMOGLOBIN 30.9 pg (28.0-32.0); MEAN CORPUSCULAR VOLUME 90.7 fL (80.0-94.0); MEAN PLATELET VOLUME 8.1 fl (7.4-10.4); MONOCYTES % 10.9 % (2.0-8.0); NEUTROPHILS % 78.2 % (40.0-76.0); PLATELET 173 x1000/uL (130-400); RED CELL DISTRIBUTION WIDTH 16.9 % (11.6-14.6)
[2018-06-01 08:00] VITALS: BP 149/24
[2018-06-01] MEDS: LEVETIRACETAM 500MG TABLET PO SCH ×2 (08:04→21:24)
[2018-06-01] MEDS: METRONIDAZOLE 500 MG PREMIX 100 ML IV SCH ×2 (08:05→21:24)
[2018-06-01 20:00] VITALS: BP 114/52
[2018-06-02] VITALS: BP 114/58
[2018-06-02] MEDS: IPRATROPIUM/ALBUTEROL 0.5-3(2.5)MG/3ML NEB HHN SCH ×6 (01:02→19:44)
[2018-06-02] MEDS: ACETAMINOPHEN 325MG TABLET PO PRN (03:30)
[2018-06-02] MEDS: BLOOD SUGAR DIAGNOSTIC STRIP TEST SCH ×4 (06:10→21:00)
[2018-06-02] MEDS: PANTOPRAZOLE 40MG DR TABLET PO SCH (06:11)
[2018-06-02] MEDS: INSULIN LISPRO 100 UNITS/ML SUBCUT SCH ×4 (06:11→21:00)
[2018-06-02 08:00] VITALS: BP 161/45
[2018-06-02] MEDS: METRONIDAZOLE 500 MG PREMIX 100 ML IV SCH ×2 (09:07→22:08)
[2018-06-02] MEDS: LEVETIRACETAM 500MG TABLET PO SCH ×2 (09:11→22:08)
[2018-06-02] MEDS: FOLIC ACID/VITAMIN B COMP W-C TABLET PO SCH (09:11)
[2018-06-02 20:00] VITALS: BP 120/54
[2018-06-02 21:00] VITALS: BP 108/58
[2018-06-02] MEDS: ATENOLOL 50 MG TABLET PO SCH (21:00)
[2018-06-02] MEDS: HYDRALAZINE HCL 100MG TABLET PO SCH (22:00)
[2018-06-02] MEDS: CLONIDINE 0.2MG TABLET PO SCH (22:00)
[2018-06-03] MEDS: IPRATROPIUM/ALBUTEROL 0.5-3(2.5)MG/3ML NEB HHN SCH ×6 (04:09→20:28)
[2018-06-03] MEDS: BLOOD SUGAR DIAGNOSTIC STRIP TEST SCH ×4 (05:40→21:00)
[2018-06-03] MEDS: HYDRALAZINE HCL 100MG TABLET PO SCH ×3 (05:40→22:00)
[2018-06-03] MEDS: CLONIDINE 0.2MG TABLET PO SCH ×3 (05:40→22:00)
[2018-06-03] MEDS: PANTOPRAZOLE 40MG DR TABLET PO SCH (06:03)
[2018-06-03] MEDS: INSULIN LISPRO 100 UNITS/ML SUBCUT SCH ×4 (06:04→22:29)
[2018-06-03 08:00] VITALS: BP 127/31
[2018-06-03] MEDS: BENAZEPRIL 20MG TABLET PO SCH (08:28)
[2018-06-03] MEDS: FOLIC ACID/VITAMIN B COMP W-C TABLET PO SCH (08:28)
[2018-06-03] MEDS: LEVETIRACETAM 500MG TABLET PO SCH ×2 (08:28→22:29)
[2018-06-03] MEDS: METRONIDAZOLE 500 MG PREMIX 100 ML IV SCH ×2 (08:29→22:29)
[2018-06-03] MEDS: ATENOLOL 50 MG TABLET PO SCH ×2 (08:56→21:00)
[2018-06-03 20:00] VITALS: BP 118/37
[2018-06-03] MEDS: EPOETIN ALFA 4000UNITS/ML VIAL SUBCUT SCH (22:31)
[2018-06-04] MEDS: IPRATROPIUM/ALBUTEROL 0.5-3(2.5)MG/3ML NEB HHN SCH ×4 (00:04→21:10)
[2018-06-04] MEDS: HYDRALAZINE HCL 100MG TABLET PO SCH ×3 (06:00→21:47)
[2018-06-04] MEDS: CLONIDINE 0.2MG TABLET PO SCH ×3 (06:00→21:47)
[2018-06-04] MEDS: BLOOD SUGAR DIAGNOSTIC STRIP TEST SCH ×4 (06:13→21:47)
[2018-06-04] MEDS: PANTOPRAZOLE 40MG DR TABLET PO SCH (06:53)
[2018-06-04 07:57] LABS: HEMATOCRIT. 22.4 % (42.0-52.0); HEMOGLOBIN. 7.4 g/dL (14.0-18.0); MEAN CORPUSCULAR HEMOGLOBIN 30.1 pg (28.0-32.0); MEAN CORPUSCULAR VOLUME 91.1 fL (80.0-94.0); MEAN PLATELET VOLUME 8.3 fl (7.4-10.4); PLATELET 212 x1000/uL (130-400); RED BLOOD CELL COUNT 2.46 mill/uL (4.7-6.1); RED CELL DISTRIBUTION WIDTH 16.6 % (11.6-14.6)
[2018-06-04] MEDS: FOLIC ACID/VITAMIN B COMP W-C TABLET PO SCH (08:04)
[2018-06-04] MEDS: METRONIDAZOLE 500 MG PREMIX 100 ML IV SCH ×2 (08:04→23:05)
[2018-06-04] MEDS: LEVETIRACETAM 500MG TABLET PO SCH ×2 (08:05→22:14)
[2018-06-04] MEDS: BENAZEPRIL 20MG TABLET PO SCH (08:09)
[2018-06-04] MEDS: ATENOLOL 50 MG TABLET PO SCH ×2 (08:10→21:00)
[2018-06-04] MEDS: INSULIN LISPRO 100 UNITS/ML SUBCUT SCH ×4 (08:16→22:23)
[2018-06-04 11:00] LABS: PLATELET ESTIMATE NORMAL
[2018-06-04 20:00] VITALS: BP 114/44
[2018-06-04] MEDS: IRON SUCROSE COMPLEX 100 MG in SODIUM CHLORIDE 0.9% 100 ML IV SCH (22:14)
[2018-06-04] MEDS: ACETAMINOPHEN 325MG TABLET PO PRN (22:24)
[2018-06-05] VITALS (8 sets, daily range): BP systolic 131–150; BP diastolic 28–41
[2018-06-05] MEDS: IPRATROPIUM/ALBUTEROL 0.5-3(2.5)MG/3ML NEB HHN SCH ×6 (00:52→21:06)
[2018-06-05] MEDS: CLONIDINE 0.2MG TABLET PO SCH ×3 (06:00→22:00)
[2018-06-05] MEDS: HYDRALAZINE HCL 100MG TABLET PO SCH ×3 (06:00→22:00)
[2018-06-05] MEDS: BLOOD SUGAR DIAGNOSTIC STRIP TEST SCH ×4 (06:22→21:00)
[2018-06-05] MEDS: PANTOPRAZOLE 40MG DR TABLET PO SCH (06:23)
[2018-06-05] MEDS: INSULIN LISPRO 100 UNITS/ML SUBCUT SCH ×3 (06:24→17:00)
[2018-06-05 07:12] LABS: MEAN CORPUSCULAR HEMOGLOBIN 30.2 pg (28.0-32.0); MEAN CORPUSCULAR VOLUME 90.8 fL (80.0-94.0); PLATELET 210 x1000/uL (130-400); RED CELL DISTRIBUTION WIDTH 16.4 % (11.6-14.6)
[2018-06-05 07:37] LABS: HEMOGLOBIN. 6.9 g/dL (14.0-18.0)
[2018-06-05 07:38] LABS: HEMATOCRIT. 20.9 % (42.0-52.0)
[2018-06-05 08:07] LABS: PLATELET ESTIMATE NORMAL
[2018-06-05] MEDS: FOLIC ACID/VITAMIN B COMP W-C TABLET PO SCH (08:44)
[2018-06-05] MEDS: METRONIDAZOLE 500 MG PREMIX 100 ML IV SCH (08:44)
[2018-06-05] MEDS: LEVETIRACETAM 500MG TABLET PO SCH (08:44)
[2018-06-05] MEDS: ATENOLOL 50 MG TABLET PO SCH ×2 (09:00→21:00)
[2018-06-05] MEDS: BENAZEPRIL 20MG TABLET PO SCH (09:00)
[2018-06-05] MEDS ORDERED: DIATR MEGLU/DIATRIZOATE SOLN 30ML PO SCH (15:00)
[2018-06-05 15:07] LABS: 25-HYDROXY VITAMIN D3 2.6 ng/mL (.)
[2018-06-05] MEDS: EPOETIN ALFA 4000UNITS/ML VIAL SUBCUT SCH (22:16)
[2018-06-06] MEDS: IRON SUCROSE COMPLEX 100 MG in SODIUM CHLORIDE 0.9% 100 ML IV SCH ×2
[2018-06-06] MEDS: INSULIN LISPRO 100 UNITS/ML SUBCUT SCH ×4 (00:07→17:00)
[2018-06-06] MEDS: METRONIDAZOLE 500 MG PREMIX 100 ML IV SCH (00:31)
[2018-06-06] MEDS: IPRATROPIUM/ALBUTEROL 0.5-3(2.5)MG/3ML NEB HHN SCH ×4 (02:01→16:42)
[2018-06-06] MEDS: CLONIDINE 0.2MG TABLET PO SCH ×2 (06:00→13:23)
[2018-06-06] MEDS: HYDRALAZINE HCL 100MG TABLET PO SCH ×2 (06:00→13:22)
[2018-06-06] MEDS: BLOOD SUGAR DIAGNOSTIC STRIP TEST SCH ×3 (06:11→17:13)
[2018-06-06] MEDS: PANTOPRAZOLE 40MG DR TABLET PO SCH (06:42)
[2018-06-06 07:45] VITALS: BP 153/59
[2018-06-06] MEDS: FOLIC ACID/VITAMIN B COMP W-C TABLET PO SCH (08:40)
[2018-06-06] MEDS: BENAZEPRIL 20MG TABLET PO SCH (08:41)
[2018-06-06] MEDS: LEVETIRACETAM 500MG TABLET PO SCH ×2 (08:41)
[2018-06-06] MEDS: ATENOLOL 50 MG TABLET PO SCH (08:42)
[2018-06-06] MEDS ORDERED: METRONIDAZOLE 500MG TABLET PO SCH (09:00)
[2018-06-06 09:33] LABS: EOSINOPHILS % 1.1 % (0.0-5.0); HEMATOCRIT. 26.9 % (42.0-52.0); HEMOGLOBIN. 8.9 g/dL (14.0-18.0); LYMPHOCYTES % 17.3 % (20.0-50.0); MEAN CORPUSCULAR HEMOGLOBIN 29.5 pg (28.0-32.0); MEAN CORPUSCULAR VOLUME 89.1 fL (80.0-94.0); MEAN PLATELET VOLUME 8.4 fl (7.4-10.4); MONOCYTES % 13.3 % (2.0-8.0); NEUTROPHILS % 67.3 % (40.0-76.0); PLATELET 260 x1000/uL (130-400); RED BLOOD CELL COUNT 3.02 mill/uL (4.7-6.1); RED CELL DISTRIBUTION WIDTH 17.6 % (11.6-14.6)
[2018-06-06] MEDS: ACETAMINOPHEN 325MG TABLET PO PRN (13:34)
[2018-06-06 17:25] VITALS: BP 153/59
[2018-06-06] MEDS ORDERED: EPOETIN ALFA 10000UNITS/ML VIAL SUBCUT SCH (21:00)
[2018-06-07] MEDS ORDERED: CHOLECALCIFEROL (D3) 1000 UNIT TABLET PO SCH (09:00)
== END 2018-06-06 17:25 | disposition short-term general hospital (02) | DRG 947 ==
PROVIDERS: ADMIT Psychiatry & Neurology Neurology; ATTEND Internal Medicine
PROC: 30233N1 Transfusion of Nonautologous Red Blood Cells into Peripheral Vein, Percutaneous Approach (ICD-10-PCS; principal; 2018-05-31)
PROC: 5A1D70Z Performance of Urinary Filtration, Intermittent, Less than 6 Hours Per Day (ICD-10-PCS; 2018-06-01)
PROC: 5A1D70Z Performance of Urinary Filtration, Intermittent, Less than 6 Hours Per Day (ICD-10-PCS; 2018-06-03)
PROC: 5A1D70Z Performance of Urinary Filtration, Intermittent, Less than 6 Hours Per Day (ICD-10-PCS; 2018-06-04)
PROC: 5A1D70Z Performance of Urinary Filtration, Intermittent, Less than 6 Hours Per Day (ICD-10-PCS; 2018-06-05)
DX: R53.81 Other malaise (principal); N18.6 End stage renal disease; K56.609 Unspecified intestinal obstruction, unspecified as to partial versus complete obstruction; E87.1 Hypo-osmolality and hyponatremia; E46 Unspecified protein-calorie malnutrition; I12.0 Hypertensive chronic kidney disease with stage 5 chronic kidney disease or end stage renal disease; R57.9 Shock, unspecified; K55.9 Vascular disorder of intestine, unspecified; J98.11 Atelectasis; K62.5 Hemorrhage of anus and rectum; H54.3 Unqualified visual loss, both eyes; E11.319 Type 2 diabetes mellitus with unspecified diabetic retinopathy without macular edema; E11.22 Type 2 diabetes mellitus with diabetic chronic kidney disease; G40.909 Epilepsy, unspecified, not intractable, without status epilepticus; E11.51 Type 2 diabetes mellitus with diabetic peripheral angiopathy without gangrene; D64.9 Anemia, unspecified; K21.9 Gastro-esophageal reflux disease without esophagitis; K74.60 Unspecified cirrhosis of liver; F32.9 Major depressive disorder, single episode, unspecified; F41.9 Anxiety disorder, unspecified; I25.10 Atherosclerotic heart disease of native coronary artery without angina pectoris; F06.31 Mood disorder due to known physiological condition with depressive features; D50.0 Iron deficiency anemia secondary to blood loss (chronic); D63.8 Anemia in other chronic diseases classified elsewhere; E55.9 Vitamin D deficiency, unspecified; D50.9 Iron deficiency anemia, unspecified; Z88.0 Allergy status to penicillin; Z99.2 Dependence on renal dialysis; Z88.1 Allergy status to other antibiotic agents; Z90.49 Acquired absence of other specified parts of digestive tract; Z68.24 Body mass index [BMI] 24.0-24.9, adult; Z79.899 Other long term (current) drug therapy
CPT/HCPCS: 36415; 71045; 74176; 80048; 82270; 82306; 82962; 84100; 85025; 86850; 86900; 86920; 92610; 93005; 93970; 94640; 97110; 97116; 97162; 97166; 97530; 97535; C9113; J0885; J1815; J3490; J7030; J7040; J7050; J7620; P9016; Q9963

== ENCOUNTER 2019-01-26 19:34 | Inpatient (IN) | payer MEDICARE, MEDICAID ==
[~2019-01-26] VITALS: Ht 162.6 cm; Wt 71.7 kg
[2019-01-27] MEDS ORDERED: CLINDAMYCIN 600 MG in DEXTROSE 5% WATER 50 ML IV ONE (02:15)
[2019-01-27] MEDS ORDERED: CLINDAMYCIN 600 MG in SODIUM CHLORIDE 0.9% 50 ML IV NR (02:30)
[2019-01-27 02:35] LABS: BASOPHILS % 1.1 % (0.0-2.0); EOSINOPHILS % 1.1 % (0.0-5.0); HEMATOCRIT. 25.6 % (42.0-52.0); HEMOGLOBIN. 8.3 g/dL (14.0-18.0); LYMPHOCYTES % 15.2 % (20.0-50.0); MEAN CORPUSCULAR HEMOGLOBIN 31.7 pg (28.0-32.0); MEAN CORPUSCULAR VOLUME 97.4 fL (80.0-94.0); MEAN PLATELET VOLUME 8.4 fl (7.4-10.4); MONOCYTES % 12.9 % (2.0-8.0); NEUTROPHILS % 69.7 % (40.0-76.0); PLATELET 133 x1000/uL (130-400); RED BLOOD CELL COUNT 2.63 mill/uL (4.7-6.1); RED CELL DISTRIBUTION WIDTH 19.1 % (11.6-14.6)
[2019-01-27 02:41] LABS: CHLORIDE 98 mEq/L (98-107)
[2019-01-27 02:43] LABS: PROTHROMBIN TIME 10.6 sec (9.6-11.0)
[2019-01-27] MEDS ORDERED: IPRATROPIUM/ALBUTEROL 0.5-3(2.5)MG/3ML NEB INH PRN (06:45)
[2019-01-27] MEDS ORDERED: DOCUSATE SODIUM 100MG CAPSULE PO PRN (06:45)
[2019-01-27] MEDS ORDERED: LEVOFLOXACIN 500MG PREMIX 100 ML IV SCH (06:45)
[2019-01-27] MEDS ORDERED: MAGNESIUM/ALUMINUM HYDROXIDE/SIMETHICONE 30ML UDC PO PRN (06:45)
[2019-01-27] MEDS ORDERED: HALOPERIDOL LACTATE 5MG/ML VIAL IM PRN (06:45)
[2019-01-27] MEDS ORDERED: GUAIFENESIN 200MG/10ML SUGAR FREE UDC PO PRN (06:45)
[2019-01-27] MEDS ORDERED: NITROGLYCERIN 0.4MG TABLET SL SL PRN (06:45)
[2019-01-27] MEDS ORDERED: LINEZOLID 600 MG PREMIX 300 ML IV SCH ×2 (06:45→11:00)
[2019-01-27] MEDS ORDERED: TRAMADOL 50MG TABLET PO PRN (06:45)
[2019-01-27] MEDS ORDERED: ACETAMINOPHEN 325MG TABLET PO PRN (06:45)
[2019-01-27] MEDS ORDERED: ENOXAPARIN 40MG/0.4ML SYR SUBCUT SCH (06:45)
[2019-01-27] MEDS ORDERED: ONDANSETRON HCL 4MG/2ML INJ IV PRN (06:45)
[2019-01-27] MEDS ORDERED: ZOLPIDEM TARTRATE 5MG TABLET PO PRN (06:45)
[2019-01-27] MEDS ORDERED: DIPHENHYDRAMINE 50MG/ML VIAL IV PRN (06:45)
[2019-01-27] MEDS ORDERED: DEXTROSE 50% WATER 50ML SYRINGE IV PRN (06:45)
[2019-01-27 08:40] VITALS: BP 134/41
[2019-01-27] MEDS ORDERED: FAMOTIDINE 20MG TABLET PO SCH (09:00)
[2019-01-27] MEDS ORDERED: MORPHINE SULFATE 4 MG/ML CPJ (NOT FOR IM USE) IV PRN (09:52)
[2019-01-27] MEDS: FOLIC ACID/VITAMIN B COMP W-C TABLET PO SCH (10:00)
[2019-01-27] MEDS: ENOXAPARIN 30MG/0.3ML SYR SUBCUT SCH (10:00)
[2019-01-27] MEDS: METOPROLOL TARTRATE 25MG TABLET PO SCH ×2 (10:00→21:19)
[2019-01-27] MEDS: FAMOTIDINE 20MG TABLET PO SCH (10:00)
[2019-01-27 12:00] VITALS: BP 112/30
[2019-01-27] MEDS: BLOOD SUGAR DIAGNOSTIC STRIP TEST SCH ×3 (12:12→21:11)
[2019-01-27] MEDS: INSULIN LISPRO 100 UNITS/ML SUBCUT SCH ×3 (12:12→21:30)
[2019-01-27] MEDS: SEVELAMER CARBONATE 800 MG TABLET PO SCH ×2 (12:40→18:03)
[2019-01-27 15:55] LABS: CREATINE KINASE 32 IU/L (39-308)
[2019-01-27 15:56] LABS: CREATINE KINASE MB FRACTION 2.3 ng/mL (0.5-3.6)
[2019-01-27 16:00] VITALS: BP 118/25
[2019-01-27] MEDS: LINEZOLID 600 MG PREMIX 300 ML IV SCH (18:18)
[2019-01-27 20:00] VITALS: BP 123/51
[2019-01-27] MEDS: PHENYTOIN SODIUM EXTENDED 100MG CAPSULE PO SCH (21:18)
[2019-01-27] MEDS: EPOETIN ALFA 10000UNITS/ML VIAL SUBCUT SCH (21:20)
[2019-01-27 23:10] LABS: CREATINE KINASE 23 IU/L (39-308)
[2019-01-27 23:11] LABS: CREATINE KINASE MB FRACTION 1.6 ng/mL (0.5-3.6)
[2019-01-28] VITALS (8 sets, daily range): BP systolic 143–218; BP diastolic 48–78
[2019-01-28] MEDS: CLONIDINE 0.2MG TABLET PO PRN ×2 (00:03→17:14)
[2019-01-28 06:08] LABS: BASOPHILS % 0.7 % (0.0-2.0); EOSINOPHILS % 0.3 % (0.0-5.0); HEMATOCRIT. 27.8 % (42.0-52.0); HEMOGLOBIN. 8.8 g/dL (14.0-18.0); LYMPHOCYTES % 14.3 % (20.0-50.0); MEAN CORPUSCULAR HEMOGLOBIN 31.1 pg (28.0-32.0); MEAN CORPUSCULAR VOLUME 97.7 fL (80.0-94.0); MEAN PLATELET VOLUME 8.3 fl (7.4-10.4); MONOCYTES % 11.6 % (2.0-8.0); NEUTROPHILS % 73.1 % (40.0-76.0); PLATELET 158 x1000/uL (130-400); RED BLOOD CELL COUNT 2.84 mill/uL (4.7-6.1); RED CELL DISTRIBUTION WIDTH 19.4 % (11.6-14.6)
[2019-01-28] MEDS: BLOOD SUGAR DIAGNOSTIC STRIP TEST SCH ×4 (06:23→21:24)
[2019-01-28] MEDS: LINEZOLID 600 MG PREMIX 300 ML IV SCH ×2 (06:30→17:14)
[2019-01-28] MEDS: INSULIN LISPRO 100 UNITS/ML SUBCUT SCH ×4 (06:36→21:32)
[2019-01-28] MEDS ORDERED: LIDOCAINE HCL 1% 20ML VIAL (Pyxis) INJ ONE ×2 (07:19→07:54)
[2019-01-28] MEDS ORDERED: GELATIN SPONGE,ABSORBABLE 12-7MM SPONGE ONE (07:19)
[2019-01-28] MEDS ORDERED: SODIUM BICARBONATE 4% (2.4MEQ) 5ML VIAL IV ONE (07:53)
[2019-01-28] MEDS: SEVELAMER CARBONATE 800 MG TABLET PO SCH ×3 (08:44→17:14)
[2019-01-28] MEDS: FOLIC ACID/VITAMIN B COMP W-C TABLET PO SCH (08:44)
[2019-01-28] MEDS: METOPROLOL TARTRATE 25MG TABLET PO SCH ×2 (08:45→21:21)
[2019-01-28] MEDS: FAMOTIDINE 20MG TABLET PO SCH (08:45)
[2019-01-28] MEDS: ENOXAPARIN 30MG/0.3ML SYR SUBCUT SCH (08:46)
[2019-01-28] MEDS: PHENYTOIN SODIUM EXTENDED 100MG CAPSULE PO SCH (21:17)
[2019-01-29] VITALS: BP 139/36
[2019-01-29 04:00] VITALS: BP 115/27
[2019-01-29] MEDS: LINEZOLID 600 MG PREMIX 300 ML IV SCH ×2 (05:39→18:00)
[2019-01-29] MEDS: BLOOD SUGAR DIAGNOSTIC STRIP TEST SCH ×4 (06:52→21:00)
[2019-01-29] MEDS: INSULIN LISPRO 100 UNITS/ML SUBCUT SCH ×4 (06:52→21:49)
[2019-01-29] MEDS: SEVELAMER CARBONATE 800 MG TABLET PO SCH ×3 (06:53→18:49)
[2019-01-29 07:33] LABS: BASOPHILS % 1.2 % (0.0-2.0); HEMOGLOBIN. 8.2 g/dL (14.0-18.0); LYMPHOCYTES % 20.5 % (20.0-50.0); MEAN CORPUSCULAR HEMOGLOBIN 31.5 pg (28.0-32.0); MEAN CORPUSCULAR VOLUME 96.6 fL (80.0-94.0); MEAN PLATELET VOLUME 7.9 fl (7.4-10.4); MONOCYTES % 11.1 % (2.0-8.0); NEUTROPHILS % 65.2 % (40.0-76.0); PLATELET 196 x1000/uL (130-400); RED BLOOD CELL COUNT 2.59 mill/uL (4.7-6.1); RED CELL DISTRIBUTION WIDTH 19.4 % (11.6-14.6)
[2019-01-29 08:00] VITALS: BP 155/44
[2019-01-29] MEDS: FAMOTIDINE 20MG TABLET PO SCH (09:26)
[2019-01-29] MEDS: METOPROLOL TARTRATE 25MG TABLET PO SCH ×2 (09:27→21:26)
[2019-01-29] MEDS: FOLIC ACID/VITAMIN B COMP W-C TABLET PO SCH (09:27)
[2019-01-29] MEDS: ENOXAPARIN 30MG/0.3ML SYR SUBCUT SCH (09:28)
[2019-01-29] MEDS ORDERED: LEVOFLOXACIN 250MG PREMIX 50 ML IV SCH (11:00)
[2019-01-29 12:00] VITALS: BP 142/51
[2019-01-29] MEDS ORDERED: CEFEPIME 1,000 MG in DEXTROSE 5% WATER 50 ML IV SCH (14:00)
[2019-01-29 16:38] VITALS: BP 158/46
[2019-01-29 19:45] VITALS: BP 140/67
[2019-01-29] MEDS: PHENYTOIN SODIUM EXTENDED 100MG CAPSULE PO SCH (21:27)
[2019-01-29] MEDS: CEFEPIME 1,000 MG in DEXTROSE 5% WATER 50 ML IV SCH (21:28)
[2019-01-29] MEDS: EPOETIN ALFA 10000UNITS/ML VIAL SUBCUT SCH (21:28)
[2019-01-30] VITALS: BP 202/68
[2019-01-30] MEDS: CLONIDINE 0.2MG TABLET PO PRN (00:04)
[2019-01-30 04:00] VITALS: BP 134/66
[2019-01-30] MEDS: BLOOD SUGAR DIAGNOSTIC STRIP TEST SCH ×4 (06:09→21:00)
[2019-01-30] MEDS: INSULIN LISPRO 100 UNITS/ML SUBCUT SCH ×4 (06:09→22:46)
[2019-01-30] MEDS: SEVELAMER CARBONATE 800 MG TABLET PO SCH ×3 (06:16→17:46)
[2019-01-30] MEDS: LINEZOLID 600 MG PREMIX 300 ML IV SCH ×2 (06:18→17:47)
[2019-01-30 07:10] LABS: BASOPHILS % 1.1 % (0.0-2.0); EOSINOPHILS % 2.3 % (0.0-5.0); HEMATOCRIT. 25.6 % (42.0-52.0); HEMOGLOBIN. 8.2 g/dL (14.0-18.0); LYMPHOCYTES % 25.9 % (20.0-50.0); MEAN CORPUSCULAR HEMOGLOBIN 31.4 pg (28.0-32.0); MEAN CORPUSCULAR VOLUME 97.3 fL (80.0-94.0); MEAN PLATELET VOLUME 7.8 fl (7.4-10.4); MONOCYTES % 10.6 % (2.0-8.0); NEUTROPHILS % 60.1 % (40.0-76.0); PLATELET 224 x1000/uL (130-400); RED BLOOD CELL COUNT 2.63 mill/uL (4.7-6.1); RED CELL DISTRIBUTION WIDTH 19.6 % (11.6-14.6)
[2019-01-30 07:45] LABS: PHOSPHORUS 4.3 mg/dL (2.5-4.9)
[2019-01-30 08:00] VITALS: BP 164/44
[2019-01-30] MEDS: FOLIC ACID/VITAMIN B COMP W-C TABLET PO SCH (08:45)
[2019-01-30] MEDS: ENOXAPARIN 30MG/0.3ML SYR SUBCUT SCH (08:45)
[2019-01-30] MEDS: METOPROLOL TARTRATE 25MG TABLET PO SCH ×2 (08:45→21:00)
[2019-01-30] MEDS: FAMOTIDINE 20MG TABLET PO SCH (08:45)
[2019-01-30 12:00] VITALS: BP 144/46
[2019-01-30 16:00] VITALS: BP 135/63
[2019-01-30] MEDS: PHENYTOIN SODIUM EXTENDED 100MG CAPSULE PO SCH (21:00)
[2019-01-30] MEDS: CEFEPIME 1,000 MG in DEXTROSE 5% WATER 50 ML IV SCH ×2 (22:22→22:50)
[2019-01-31] MEDS: LINEZOLID 600 MG PREMIX 300 ML IV SCH ×2 (06:00→18:32)
[2019-01-31] MEDS: INSULIN LISPRO 100 UNITS/ML SUBCUT SCH ×4 (07:40→22:28)
[2019-01-31 08:00] VITALS: BP 193/71
[2019-01-31 08:18] LABS: BASOPHILS % 1.2 % (0.0-2.0); EOSINOPHILS % 3.2 % (0.0-5.0); HEMATOCRIT. 25.7 % (42.0-52.0); HEMOGLOBIN. 8.1 g/dL (14.0-18.0); LYMPHOCYTES % 18.9 % (20.0-50.0); MEAN CORPUSCULAR HEMOGLOBIN 31.1 pg (28.0-32.0); MEAN PLATELET VOLUME 7.8 fl (7.4-10.4); MONOCYTES % 9.5 % (2.0-8.0); NEUTROPHILS % 67.2 % (40.0-76.0); PLATELET 227 x1000/uL (130-400); RED BLOOD CELL COUNT 2.62 mill/uL (4.7-6.1)
[2019-01-31] MEDS: METOPROLOL TARTRATE 25MG TABLET PO SCH ×2 (09:00→16:08)
[2019-01-31 09:16] LABS: PHOSPHORUS 6.6 mg/dL (2.5-4.9)
[2019-01-31] MEDS: FOLIC ACID/VITAMIN B COMP W-C TABLET PO SCH (09:51)
[2019-01-31] MEDS: ENOXAPARIN 30MG/0.3ML SYR SUBCUT SCH (09:52)
[2019-01-31] MEDS: FAMOTIDINE 20MG TABLET PO SCH (09:52)
[2019-01-31] MEDS: SEVELAMER CARBONATE 800 MG TABLET PO SCH ×3 (10:19→18:32)
[2019-01-31 12:00] VITALS: BP 209/100
[2019-01-31] MEDS: BLOOD SUGAR DIAGNOSTIC STRIP TEST SCH ×3 (12:33→21:00)
[2019-01-31 16:00] VITALS: BP 188/86
[2019-01-31] MEDS ORDERED: BENAZEPRIL 10MG TABLET PO NR (18:22)
[2019-01-31] MEDS ORDERED: HYDRALAZINE HCL 100MG TABLET PO NR (18:22)
[2019-01-31 20:00] VITALS: BP 128/69
[2019-01-31] MEDS: METOPROLOL TARTRATE 50MG TABLET PO SCH (22:18)
[2019-01-31] MEDS: PHENYTOIN SODIUM EXTENDED 100MG CAPSULE PO SCH (22:18)
[2019-01-31] MEDS: EPOETIN ALFA 10000UNITS/ML VIAL SUBCUT SCH (22:19)
[2019-01-31] MEDS: BENAZEPRIL 10MG TABLET PO SCH (22:19)
[2019-01-31] MEDS: HYDRALAZINE HCL 100MG TABLET PO SCH (23:06)
[2019-02-01] VITALS: BP 185/86
[2019-02-01 04:00] VITALS: BP 162/53
[2019-02-01] MEDS: HYDRALAZINE HCL 100MG TABLET PO SCH ×2 (05:23→13:58)
[2019-02-01] MEDS: LINEZOLID 600 MG PREMIX 300 ML IV SCH (05:24)
[2019-02-01] MEDS: INSULIN LISPRO 100 UNITS/ML SUBCUT SCH ×2 (06:57→12:43)
[2019-02-01] MEDS: BLOOD SUGAR DIAGNOSTIC STRIP TEST SCH ×2 (06:57→11:57)
[2019-02-01] MEDS: SEVELAMER CARBONATE 800 MG TABLET PO SCH ×2 (07:49→12:41)
[2019-02-01 08:00] VITALS: BP 147/31
[2019-02-01] MEDS: FOLIC ACID/VITAMIN B COMP W-C TABLET PO SCH (08:58)
[2019-02-01] MEDS: FAMOTIDINE 20MG TABLET PO SCH (08:59)
[2019-02-01] MEDS: METOPROLOL TARTRATE 50MG TABLET PO SCH (08:59)
[2019-02-01] MEDS: BENAZEPRIL 10MG TABLET PO SCH (08:59)
[2019-02-01] MEDS: ENOXAPARIN 30MG/0.3ML SYR SUBCUT SCH (08:59)
[2019-02-01] MEDS ORDERED: NIFEDIPINE XL 60MG TAB PO SCH (09:00)
[2019-02-01 09:03] LABS: BASOPHILS % 1.5 % (0.0-2.0); HEMATOCRIT. 25.8 % (42.0-52.0); HEMOGLOBIN. 8.3 g/dL (14.0-18.0); LYMPHOCYTES % 16.8 % (20.0-50.0); MEAN CORPUSCULAR HEMOGLOBIN 31.7 pg (28.0-32.0); MEAN CORPUSCULAR VOLUME 98.8 fL (80.0-94.0); MEAN PLATELET VOLUME 7.5 fl (7.4-10.4); MONOCYTES % 8.8 % (2.0-8.0); NEUTROPHILS % 69.9 % (40.0-76.0); PLATELET 231 x1000/uL (130-400); RED BLOOD CELL COUNT 2.61 mill/uL (4.7-6.1); RED CELL DISTRIBUTION WIDTH 19.1 % (11.6-14.6)
[2019-02-01 12:00] VITALS: BP 147/47
[2019-02-01 15:55] VITALS: BP 147/31
[2019-02-01 16:00] VITALS: BP 146/32
[2019-02-03] MEDS ORDERED: EPOETIN ALFA 10000UNITS/ML VIAL SUBCUT SCH (21:00)
== END 2019-02-01 17:00 | disposition home or self-care (01) | DRG 314 ==
LOC: ER 19:34 → EDBEDREQSVC 01-27 05:52 → EDBEDREQTM 01-27 05:52 → EDBEDREQ 01-27 05:52 → SUPCPDRO 01-27 06:32 → ENRESERV 01-27 07:25 → 8WST 01-27 09:38
PROVIDERS: ADMIT Internal Medicine; ATTEND Internal Medicine
PROC: 5A1D70Z Performance of Urinary Filtration, Intermittent, Less than 6 Hours Per Day (ICD-10-PCS; principal; 2019-01-27)
PROC: 06PYX3Z Removal of Infusion Device from Lower Vein, External Approach (ICD-10-PCS; 2019-01-28)
PROC: 5A1D70Z Performance of Urinary Filtration, Intermittent, Less than 6 Hours Per Day (ICD-10-PCS; 2019-01-29)
PROC: 5A1D70Z Performance of Urinary Filtration, Intermittent, Less than 6 Hours Per Day (ICD-10-PCS; 2019-02-01)
DX: T82.41XA Breakdown (mechanical) of vascular dialysis catheter, initial encounter (principal); N18.6 End stage renal disease; A41.9 Sepsis, unspecified organism; E44.1 Mild protein-calorie malnutrition; E87.1 Hypo-osmolality and hyponatremia; I13.11 Hypertensive heart and chronic kidney disease without heart failure, with stage 5 chronic kidney disease, or end stage renal disease; T82.7XXA Infection and inflammatory reaction due to other cardiac and vascular devices, implants and grafts, initial encounter; D63.8 Anemia in other chronic diseases classified elsewhere; E11.22 Type 2 diabetes mellitus with diabetic chronic kidney disease; E78.5 Hyperlipidemia, unspecified; E78.00 Pure hypercholesterolemia, unspecified; G40.909 Epilepsy, unspecified, not intractable, without status epilepticus; H54.7 Unspecified visual loss; I27.20 Pulmonary hypertension, unspecified; K21.9 Gastro-esophageal reflux disease without esophagitis; K74.60 Unspecified cirrhosis of liver; Y71.2 Prosthetic and other implants, materials and accessory cardiovascular devices associated with adverse incidents; Z79.4 Long term (current) use of insulin; Z82.49 Family history of ischemic heart disease and other diseases of the circulatory system; Y92.89 Other specified places as the place of occurrence of the external cause; Z99.2 Dependence on renal dialysis; Z88.0 Allergy status to penicillin; Z79.899 Other long term (current) drug therapy; Z68.27 Body mass index [BMI] 27.0-27.9, adult; Z88.2 Allergy status to sulfonamides
CPT/HCPCS: 36415; 36589; 71045; 71250; 80048; 80061; 80185; 82550; 82553; 82962; 83036; 83605; 83735; 84100; 84484; 85651; 93005; 93306; 93970; 96365; 99285; J0692; J0885; J1200; J1650; J1815; J1956; J2020; J3490; J7040; J7050; J7060

== ENCOUNTER → 2020-03-29 | Outpatient (CLI) | payer MEDICARE, MEDICAID ==
[~2020-03-29] MED LIST changes: +ASPI-1497 MT; +CALC667C MT; +HYDR-4133 MT; +LINA5TAB MT; +MINO10TA MT; +NIFE-33 MT; -VIT D2
== END | disposition home or self-care (01) ==
LOC: LAB 09:54
PROVIDERS: ATTEND Specialist
DX: R05 Cough (principal); Z20.828 Contact with and (suspected) exposure to other viral communicable diseases
CPT/HCPCS: C9803; U0003

== ENCOUNTER → 2020-04-12 | Outpatient (CLI) | payer MEDICARE, MEDICAID ==
[~2020-04-12] MED LIST changes: -ARIP15TA7 MT; -BENA20TA10 MT; -CLON0.2T PO; +CLOP75TA33 PO; +ERGO500013 PO; -HYDR100T26 PO
== END | disposition home or self-care (01) ==
LOC: LAB 11:09
PROVIDERS: ATTEND Specialist
DX: R05 Cough (principal); Z20.828 Contact with and (suspected) exposure to other viral communicable diseases
CPT/HCPCS: C9803; U0003

== ENCOUNTER 2020-04-14 10:08 | Day surgery (SDC) | payer MEDICARE, MEDICAID ==
[~2020-04-14] VITALS: Ht 165.1 cm; Wt 70.8 kg
[~2020-04-14 10:08] MED LIST changes: -ERGO500013 PO
[2020-04-14] MEDS ORDERED: ERGO500013 PO (11:23)
[2020-04-14] MEDS ORDERED: FENTANYL CITRATE/PF 50MCG/ML 2ML VIAL ONE (12:21)
[2020-04-14] MEDS ORDERED: IOHEXOL-300 100 ML BOTTLE ONE (12:21)
[2020-04-14] MEDS ORDERED: MIDAZOLAM HCL 2 MG/2 ML VIAL ONE (12:21)
[2020-04-14] MEDS ORDERED: HEPARIN SODIUM 1,000 UNIT/1ML VIAL IV ONE (12:50)
[2020-04-14] MEDS ORDERED: LIDOCAINE HCL 1% 20ML VIAL (Pyxis) INJ ONE (12:51)
[2020-04-14] MEDS ORDERED: HYDRALAZINE 20MG/ML VIAL ONE (13:42)
[2020-04-14] MEDS ORDERED: ACETAMINOPHEN 325MG TABLET PO PRN (14:00)
[2020-04-14] MEDS ORDERED: ONDANSETRON HCL 4MG/2ML INJ IV PRN (14:00)
== END 2020-04-14 19:00 | disposition home or self-care (01) ==
LOC: CCL 10:08
PROVIDERS: ATTEND Specialist
DX: I73.9 Peripheral vascular disease, unspecified (principal); I12.0 Hypertensive chronic kidney disease with stage 5 chronic kidney disease or end stage renal disease; E11.22 Type 2 diabetes mellitus with diabetic chronic kidney disease; I25.10 Atherosclerotic heart disease of native coronary artery without angina pectoris; N18.6 End stage renal disease; E78.5 Hyperlipidemia, unspecified; Z79.899 Other long term (current) drug therapy; Z79.84 Long term (current) use of oral hypoglycemic drugs; Z98.890 Other specified postprocedural states; Z88.0 Allergy status to penicillin; Z88.8 Allergy status to other drugs, medicaments and biological substances
CPT/HCPCS: 36247; 75710; 82962; C1760; C1769; C1893; J0360; J1644; J2250; J3010; J3490; Q9967; 99152; G0500

== ENCOUNTER 2020-10-03 18:33 | Emergency (ER) | payer MEDICARE, MEDICAID ==
[~2020-10-03] VITALS: Ht 165.1 cm; Wt 57.0 kg
[~2020-10-03 18:33] MED LIST changes: +ERGO500013 PO
[2020-10-03 18:46] VITALS: BP 115/63
[2020-10-03 19:33] LABS: EOSINOPHILS % 1.8 % (0.0-5.0); HEMATOCRIT. 25.9 % (42.0-52.0); HEMOGLOBIN. 8.6 g/dL (14.0-18.0); LYMPHOCYTES % 12.4 % (20.0-50.0); MEAN CORPUSCULAR HEMOGLOBIN 34.9 pg (28.0-32.0); MEAN CORPUSCULAR VOLUME 105.8 fL (80.0-94.0); MEAN PLATELET VOLUME 7.9 fl (7.4-10.4); MONOCYTES % 6.8 % (2.0-8.0); PLATELET 122 x1000/uL (130-400); RED BLOOD CELL COUNT 2.45 mill/uL (4.7-6.1); RED CELL DISTRIBUTION WIDTH 17.7 % (11.6-14.6)
[2020-10-03 19:39] LABS: CHLORIDE 98 mEq/L (98-107)
== END 2020-10-03 20:59 | disposition home or self-care (01) ==
LOC: ER 18:33
DX: T82.41XA Breakdown (mechanical) of vascular dialysis catheter, initial encounter (principal); Y82.8 Other medical devices associated with adverse incidents; Y92.538 Other ambulatory health services establishments as the place of occurrence of the external cause; I12.0 Hypertensive chronic kidney disease with stage 5 chronic kidney disease or end stage renal disease; E11.22 Type 2 diabetes mellitus with diabetic chronic kidney disease; N18.6 End stage renal disease; D72.819 Decreased white blood cell count, unspecified; D64.9 Anemia, unspecified; Z99.2 Dependence on renal dialysis; Z79.84 Long term (current) use of oral hypoglycemic drugs; Z79.899 Other long term (current) drug therapy
CPT/HCPCS: 36415; 71045; 80053; 85025; 93005; 99284